=== PATIENT | female | born 1965 | race Caucasian/White ===

== ENCOUNTER 2021-01-10 20:37 | Emergency (ER) | payer SELFPAY ==
[~2021-01-10] VITALS: Ht 175.3 cm; Wt 106.6 kg
[2021-01-10] MEDS ORDERED: CLONIDINE HCL 0.2 MG TAB PO ONE (21:00)
[2021-01-10] MEDS ORDERED: OXYMETAZOLINE HCL 0.05% NAS 1 SPRAY BTL ONE (21:00)
[2021-01-10] MEDS ORDERED: HYDROCHLOROTHIA25 MG PO (21:53)
[2021-01-10 22:18] VITALS: BP 145/90
== END 2021-01-10 22:19 | disposition home or self-care (01) ==
LOC: ER 21:07
DX: J32.9 Chronic sinusitis, unspecified (principal); R51.9 Headache, unspecified; I10 Essential (primary) hypertension
CPT/HCPCS: 99282